=== PATIENT | female | born 2000 | race American Indian/Alaskan Native ===

== ENCOUNTER → 2021-08-20 | Emergency (ER) | payer SELFPAY ==
[~2021-08-20] MED LIST: ACETAMINOPHEN 325 MG TAB PO ONE
[2021-08-20 12:21] VITALS: BP 108/62
--- NOTE | 2021-08-20 12:59 | Emergency Department Report ---
ED HPI - General Chief complaint: Vaginal Bleeding Stated complaint: VAG BLEEDING/PREG Time Seen by Provider: 08/20/21 12:26 Source: patient, family Mode of arrival: Ambulatory Limitations: No Limitations - History of Present Illness Initial comments: Patient is a 21-year-old female presents emergency room complaints of vaginal bleeding that began 3 days ago. She reports that she went to [facility] 3 days ago and states that her hCG quant was 2735 and states that she was advised could be very early and she needed to follow-up with OB for repeat quant. She reports that she did make an appointment with [facility] but has not seen them yet. She states that she has continued to have some bleeding and reports that she passed 1 large clot. States that she is also having lower abdominal cramping. She states that she is changing her pad approximately every 2-3 hours. She denies any fever, nausea, vomiting, diarrhea, dysuria. No allergies to medications. /P: 1/A: 0. She states her last menstrual cycle was 07/21/2021. - Related Data Allergies Allergy/AdvReac Type Severity Reaction Status Date / Time No Known Allergies Allergy Unverified 08/20/21 12:17 ED Review of Systems ROS: Stated complaint: VAG BLEEDING/PREG Other details as noted in HPI Comment: All other systems reviewed and negative ED Past Medical Hx - Past Medical History Previous Medical History?: No - Surgical History Past Surgical History?: No ED Physical Exam - General Limitations: No Limitations General appearance: alert, in no apparent distress - Head Head exam: Present: atraumatic, normocephalic - Eye Eye exam: Present: normal appearance - ENT ENT exam: Present: mucous membranes moist - Respiratory Respiratory exam: Present: normal lung sounds bilaterally. Absent: respiratory distress, wheezes, rales, rhonchi, stridor, chest wall tenderness, accessory muscle use, decreased breath sounds, prolonged expiratory - Cardiovascular Cardiovascular Exam: Present: regular rate, normal rhythm, normal heart sounds. Absent: systolic murmur, diastolic murmur, rubs, gallop - GI/Abdominal GI/Abdominal exam: Present: soft, normal bowel sounds. Absent: distended, tenderness, guarding, rebound, rigid - Neurological Exam Neurological exam: Present: alert, oriented X3 - Psychiatric Psychiatric exam: Present: normal affect, normal mood - Skin Skin exam: Present: warm, dry, intact ED Course Vital Signs 08/20/21 08/20/21 12:17 12:46 Temperature 98 F Pulse Rate 86 Respiratory 16 14 Rate Blood Pressure 108/62 [Left] O2 Sat by Pulse 96 Oximetry ED Medical Decision Making - Lab Data Result diagrams: 08/20/21 13:03 08/20/21 13:03 Lab Results 08/20/21 08/20/21 08/20/21 Range/Units 13:03 13:03 13:03 WBC 4.3 L (4.5-11.0) K/mm3 RBC 4.13 (3.65-5.03) M/mm3 Hgb 12.0 (10.1-14.3) gm/dl Hct 37.8 (30.3-42.9) % MCV 92 (79-97) fl MCH 29 (28-32) pg MCHC 32 (30-34) % RDW 13.6 (13.2-15.2) % Plt Count 222 (140-440) K/mm3 Lymph % (Auto) 27.1 (13.4-35.0) % Emery % (Auto) 11.8 H (0.0-7.3) % Eos % (Auto) 0.4 (0.0-4.3) % Baso % (Auto) 0.8 (0.0-1.8) % Lymph # (Auto) 1.2 (1.2-5.4) K/mm3 Emery # (Auto) 0.5 (0.0-0.8) K/mm3 Eos # (Auto) 0.0 (0.0-0.4) K/mm3 Baso # (Auto) 0.0 (0.0-0.1) K/mm3 Seg Neutrophils % 59.9 (40.0-70.0) % Seg Neutrophils # 2.6 (1.8-7.7) K/mm3 Sodium 138 (137-145) mmol/L Potassium 3.7 (3.6-5.0) mmol/L Chloride 102.3 (98-107) mmol/L Carbon Dioxide 24 (22-30) mmol/L Anion Gap 15 mmol/L BUN 10 (7-17) mg/dL Creatinine 0.6 (0.6-1.2) mg/dL Estimated GFR > 60 ml/min BUN/Creatinine Ratio 17 % Glucose 89 (65-100) mg/dL Calcium 9.0 (8.4-10.2) mg/dL Total Bilirubin 1.20 (0.1-1.2) mg/dL AST 17 (5-40) units/L ALT 13 (7-56) units/L Alkaline Phosphatase 41 (35-129) units/L Total Protein 7.1 (6.3-8.2) g/dL Albumin 4.6 (3.9-5) g/dL Albumin/Globulin Ratio 1.8 % HCG, Quant 1562 H (0-4) mIU/mL Blood Type 08/20/21 Range/Units 13:03 WBC (4.5-11.0) K/mm3 RBC (3.65-5.03) M/mm3 Hgb (10.1-14.3) gm/dl Hct (30.3-42.9) % MCV (79-97) fl MCH (28-32) pg MCHC (30-34) % RDW (13.2-15.2) % Plt Count (140-440) K/mm3 Lymph % (Auto) (13.4-35.0) % Emery % (Auto) (0.0-7.3) % Eos % (Auto) (0.0-4.3) % Baso % (Auto) (0.0-1.8) % Lymph # (Auto) (1.2-5.4) K/mm3 Emery # (Auto) (0.0-0.8) K/mm3 Eos # (Auto) (0.0-0.4) K/mm3 Baso # (Auto) (0.0-0.1) K/mm3 Seg Neutrophils % (40.0-70.0) % Seg Neutrophils # (1.8-7.7) K/mm3 Sodium (137-145) mmol/L Potassium (3.6-5.0) mmol/L Chloride (98-107) mmol/L Carbon Dioxide (22-30) mmol/L Anion Gap mmol/L BUN (7-17) mg/dL Creatinine (0.6-1.2) mg/dL Estimated GFR ml/min BUN/Creatinine Ratio % Glucose (65-100) mg/dL Calcium (8.4-10.2) mg/dL Total Bilirubin (0.1-1.2) mg/dL AST (5-40) units/L ALT (7-56) units/L Alkaline Phosphatase (35-129) units/L Total Protein (6.3-8.2) g/dL Albumin (3.9-5) g/dL Albumin/Globulin Ratio % HCG, Quant (0-4) mIU/mL Blood Type A POSITIVE - Radiology Data Radiology results: report reviewed Ordering Physician: SHAMA ELLINGTON Date of Service: 08/20/21 Procedure(s): US OB transvaginal Accession Number(s): [id number] cc: SHAMA ELLINGTON Pelvic Ultrasound HISTORY: , bleeding, cramping. TECHNIQUE: Grayscale and color imaging performed. COMPARISON: None FINDINGS: Uterus measures 10.0 x 4.1 x 5.5 cm. There is a tiny cystic structure in the uterine body measuring 0.6 centimeters which would correspond with an EGA of 5 weeks and 2 days. There is a yolk sac and a pole measuring 2 mm in maximal dimension corresponding with an EGA of 5 weeks and 6 days. I do not see any imaging with cardiac activity to evaluate for heart rate, perhaps too small/early for determination The ovaries both appear unremarkable with tiny follicles. There is trace pelvic free fluid. IMPRESSION: Single intrauterine gestation as outlined above. Recommend close follow-up to assess for cardiac activity once clinically feasible. Signer Name: Kleber Conde MD Signed: 08/20/2021 4:31 PM Workstation Name: [id number] Transcribed By: Dictated By: Kleber Conde MD Electronically Authenticated By: Kleber Conde MD Signed Date/Time: 08/20/21 1631 DD/ 1619 TD/TT: - Medical Decision Making Patient is a 21-year-old female presents emergency room complaints of vaginal bleeding that began 3 days ago. She reports that she went to [facility] 3 days ago and states that her hCG quant was 2735 and states that she was advised could be very early and she needed to follow-up with OB for repeat quant. She reports that she did make an appointment with [facility] but has not seen them yet. She states that she has continued to have some bleeding and reports that she passed 1 large clot. States that she is also having lower abdominal cramping. She states that she is changing her pad approximately every 2-3 hours. She denies any fever, nausea, vomiting, diarrhea, dysuria. No allergies to medications. /P: 1/A: 0. She states her last menstrual cycle was 07/21/2021. Vitals are normal. No abdominal tenderness on exam. H&H is normal. hCG quant is 1562. Patient is Rh+. OB ultrasound IMPRESSION: Single intrauterine gestation as outlined above. Recommend close follow-up to assess for cardiac activity once clinically feasible. Given that there is no cardiac activity and her hCG quant has decreased this is likely consistent with miscarriage. Discussed all findings with patient. Advised patient May take Tylenol as needed for any pain. Increase your fluid intake. Follow-up with [facility]. You need to have a repeat hCG quant in 2 to 3 days. Return to emergency room for any new or worse symptoms. Today your hCG quant is 1562. Critical care attestation.: If time is entered above; I have spent that time in minutes in the direct care of this critically ill patient, excluding procedure time. ED Disposition Clinical Impression: Threatened miscarriage Disposition: 01 HOME / SELF CARE / HOMELESS Is pt being admited?: No Does the pt Need Aspirin: No Condition: Stable Instructions: Threatened Miscarriage Additional Instructions: May take Tylenol as needed for any pain. Increase your fluid intake. Follow-up with [facility]. You need to have a repeat hCG quant in 2 to 3 days. Return to emergency room for any new or worse symptoms. Today your hCG quant is 1562. Referrals: JIMENA COSBY MD [Staff Physician] - 2-3 Days Forms: Work/School Release Form(ED) Time of Disposition: 16:42 Print Language: NORTHERN IRISH
[2021-08-20 14:16] LABS: Basophils % (Auto) 0.8 % (0.0-1.8); Eosinophils % (Auto) 0.4 % (0.0-4.3); Hematocrit 37.8 % (30.3-42.9); Lymphocytes # (Auto) 1.2 K/mm3 (1.2-5.4); Lymphocytes % (Auto) 27.1 % (13.4-35.0); Mean Corpuscular HGB Conc 32 % (30-34); Mean Corpuscular Volume 92 fl (79-97); Monocytes # (Auto) 0.5 K/mm3 (0.0-0.8); Monocytes % (Auto) 11.8 % (0.0-7.3); Platelet Count 222 K/mm3 (140-440); Red Blood Count 4.13 M/mm3 (3.65-5.03); Red Cell Distribution Width 13.6 % (13.2-15.2)
[2021-08-20 14:36] LABS: Alanine Aminotransferase 13 units/L (7-56); Albumin 4.6 g/dL (3.9-5); Blood Urea Nitrogen 10 mg/dL (7-17); Hemolysis Index 13
[2021-08-20 14:39] LABS: BUN/Creatinine Ratio 17
--- NOTE | 2021-08-20 16:35 | Ultrasound Report ---
Pelvic Ultrasound HISTORY: , bleeding, cramping. TECHNIQUE: Grayscale and color imaging performed. COMPARISON: None FINDINGS: Uterus measures 10.0 x 4.1 x 5.5 cm. There is a tiny cystic structure in the uterine body m easuring 0.6 centimeters which would correspond with an EGA of 5 weeks and 2 days. There is a yolk sa c and a pole measuring 2 mm in maximal dimension corresponding with an EGA of 5 weeks and 6 day s. I do not see any imaging with cardiac activity to evaluate for heart rate, perhaps too small /early for determination The ovaries both appear unremarkable with tiny follicles. There is trace pelvic free fluid. IMPRESSION: Single intrauterine gestation as outlined above. Recommend close follow-up to assess for cardiac activity once clinically feasible. Signer Name: Kleber Conde MD Signed: 08/20/2021 4:31 PM Workstation Name: [id number]
== END | disposition home or self-care (01) ==
LOC: EDBD → ED 12:04
DX: O20.0 Threatened abortion (principal); Z3A.01 Less than 8 weeks gestation of pregnancy
CPT/HCPCS: 36415; 76801; 76817; 80053; 84702; 85025; 86900; 86901; 99284

== ENCOUNTER 2021-10-26 12:00 | Emergency (ER) | payer SELFPAY ==
[2021-10-26 13:15] VITALS: BP 100/55
[2021-10-26] MEDS ORDERED: ACETAMINOPHEN 325 MG TAB PO ONE (14:32)
--- NOTE | 2021-10-26 14:33 | Emergency Department Report ---
ED Female HPI - General Chief complaint: Abdominal Pain Stated complaint: STD/CRAMPING/MIGRAINE Time Seen by Provider: 10/26/21 14:15 Source: patient Mode of arrival: Ambulatory Limitations: No Limitations - History of Present Illness Initial comments: 21-year-old female presents to the ER today with complaints of "I think I had a miscarriage back in August". Patient states that she found out she was back in July. She had a home test which was positive and a confirmed test at a local clinic. She states 2 weeks after final she was she started with vaginal bleeding and she came here and had ultrasound and labs. Patient states that the bleeding then stopped. She states that she is concerned that the "baby has not come out". Patient states that she is concerned because she has been having abdominal pain since September 20. She states that prior to find out she was her last menstrual cycle was July 19. She did start her menstrual cycle yesterday. She is not currently on control. She states that she has never had a miscarriage before and is concerned this could be related to an STD though she denies any abnormal vaginal discharge. She states that she is always at the same sexual partner. She does not have any significant past medical history. She denies any other symptoms at this time. MD Complaint: pelvic pain -: week(s) (since September 20) - Related Data Previous Rx's Medication Instructions Recorded Last Taken Type Ibuprofen [Motrin] 600 mg PO Q8H PRN #30 tablet 10/26/21 Unknown Rx metroNIDAZOLE [Flagyl] 500 mg PO Q12HR #14 tab 10/26/21 Unknown Rx Allergies Allergy/AdvReac Type Severity Reaction Status Date / Time No Known Allergies Allergy Verified 10/26/21 13:10 ED Review of Systems ROS: Stated complaint: STD/CRAMPING/MIGRAINE Other details as noted in HPI Comment: All other systems reviewed and negative Constitutional: denies: chills, fever Eyes: denies: eye pain, eye discharge, vision change ENT: denies: ear pain, throat pain Respiratory: denies: cough, shortness of breath, wheezing Cardiovascular: denies: chest pain, palpitations Gastrointestinal: abdominal pain. denies: nausea, vomiting, diarrhea, constipation, hematemesis, melena Genitourinary: denies: urgency, dysuria, frequency, hematuria, discharge, abnormal menses, dyspareunia Musculoskeletal: denies: back pain, joint swelling, arthralgia Skin: denies: rash, lesions, change in color, change in hair/nails, pruritus Neurological: headache. denies: weakness, numbness, paresthesias, confusion, abnormal gait, vertigo Psychiatric: denies: depression, auditory hallucinations, visual hallucinations, homicidal thoughts, suicidal thoughts Hematological/Lymphatic: denies: easy bleeding, easy bruising, swollen glands ED Past Medical Hx - Past Medical History Previous Medical History?: No - Surgical History Past Surgical History?: No - Medications Home Medications: Home Medications Medication Instructions Recorded Confirmed Last Taken Type Ibuprofen [Motrin] 600 mg PO Q8H PRN #30 tablet 10/26/21 Unknown Rx metroNIDAZOLE [Flagyl] 500 mg PO Q12HR #14 tab 10/26/21 Unknown Rx ED Physical Exam - General Limitations: No Limitations General appearance: alert, in no apparent distress - Head Head exam: Present: atraumatic, normocephalic, normal inspection - Eye Eye exam: Present: normal appearance, PERRL, EOMI Pupils: Present: normal accommodation - Neck Neck exam: Present: normal inspection, full ROM. Absent: meningismus - Respiratory Respiratory exam: Present: normal lung sounds bilaterally. Absent: respiratory distress, wheezes, rales, rhonchi, stridor - Cardiovascular Cardiovascular Exam: Present: normal rhythm, normal heart sounds - GI/Abdominal GI/Abdominal exam: Present: soft, tenderness (mild suprapubic ttp without guarding or rebound ). Absent: distended, guarding, rebound, rigid - External exam: Present: normal external exam, other (Machine Attendant present ) Speculum exam: Present: vaginal bleeding (mild ) Bi-manual exam: Present: normal bi-manual exam - Neurological Exam Neurological exam: Present: alert, oriented X3, CN II-XII intact, normal gait - Psychiatric Psychiatric exam: Present: normal affect, normal mood - Skin Skin exam: Present: intact ED Course Vital Signs 10/26/21 13:14 Temperature 98.3 F Pulse Rate 81 Respiratory 20 Rate Blood Pressure 100/55 O2 Sat by Pulse 99 Oximetry ED Medical Decision Making - Lab Data Result diagrams: 10/26/21 14:42 10/26/21 14:42 - Medical Decision Making CBC and CMP unremarkable. UA normal quant. hCG negative. Wet prep positive for BV but otherwise negative. Patient currently sitting comfortably in the room. She is not toxic or ill-appearing. She has a nonsurgical abdominal exam. Pelvic exam showed some mild bleeding consistent with her menstrual cycle but otherwise no CMT or significant discharge or adnexal tenderness or adnexal mass. She is neurologically intact with a normal gait. Her vital signs are stable. Discussed all lab work with patient. She will be started on Flagyl. I did offer to treat prophylactically for GC but she refused. She will be given referral information to local [facility] for follow-up. Patient expressed understanding. Patient was stable at time of discharge. Critical care attestation.: If time is entered above; I have spent that time in minutes in the direct care of this critically ill patient, excluding procedure time. ED Disposition Clinical Impression: Pelvic pain, Bacterial vaginosis Disposition: HOME / SELF CARE / HOMELESS Is pt being admited?: No Does the pt Need Aspirin: No Condition: Stable Instructions: Pelvic Pain, Female, [id number], Bacterial Vaginosis, Bacterial Vaginosis (ED), Abdominal Pain (ED) Additional Instructions: I recommend that you take the Flagyl as prescribed until completion. You can take Tylenol and ibuprofen as needed for pain. Follow-up with the [facility] listed on discharge instructions especially if your symptoms persist. Return to the ER if your symptoms changes or worsens in any way. Prescriptions: metroNIDAZOLE [Flagyl] 500 mg PO Q12HR #14 tab Ibuprofen [Motrin] 600 mg PO Q8H PRN #30 tablet PRN Reason: Pain Referrals: [facility] [Provider Group] - 3-5 Days [facility] [Provider Group] - 3-5 Days Forms: STI Treatment and Prevention Time of Disposition: 16:31
[2021-10-26 15:18] LABS: Basophils % (Auto) 0.9 % (0.0-1.8); Eosinophils # (Auto) 0.1 K/mm3 (0.0-0.4); Eosinophils % (Auto) 1.9 % (0.0-4.3); Hematocrit 37.1 % (30.3-42.9); Hemoglobin 11.9 gm/dl (10.1-14.3); Lymphocytes # (Auto) 1.8 K/mm3 (1.2-5.4); Lymphocytes % (Auto) 51.9 % (13.4-35.0); Mean Corpuscular HGB Conc 32 % (30-34); Mean Corpuscular Volume 93 fl (79-97); Monocytes # (Auto) 0.3 K/mm3 (0.0-0.8); Monocytes % (Auto) 9.8 % (0.0-7.3); Platelet Count 228 K/mm3 (140-440); Red Blood Count 4.02 M/mm3 (3.65-5.03); Red Cell Distribution Width 14.8 % (13.2-15.2)
[2021-10-26 15:19] LABS: Bilirubin,Urine NEG (Negative); Color,Urine Yellow (Yellow)
[2021-10-26 15:20] LABS: Blood,Urine LG (Negative); Mucus,Urine FEW /HPF; Protein,Urine <15 mg/dL mg/dL (Negative); Urobilinogen,Urine < 2.0 mg/dL (<2.0)
[2021-10-26 16:05] LABS: Alanine Aminotransferase 9 units/L (7-56); Albumin 4.3 g/dL (3.9-5); Blood Urea Nitrogen 12 mg/dL (7-17); Calcium 9.2 mg/dL (8.4-10.2); Hemolysis Index 11
[2021-10-26 16:18] LABS: BUN/Creatinine Ratio 17
== END 2021-10-26 18:00 | disposition home or self-care (01) ==
LOC: ED 12:00
DX: R10.2 Pelvic and perineal pain (principal); N77.1 Vaginitis, vulvitis and vulvovaginitis in diseases classified elsewhere
CPT/HCPCS: 36415; 80053; 81001; 84702; 85025; 87210; 87591; 99284

== ENCOUNTER 2022-03-20 08:14 | Emergency (ER) | payer SELFPAY ==
[2022-03-20 08:48] VITALS: BP 105/68
--- NOTE | 2022-03-20 09:06 | Emergency Department Report ---
ED Female HPI - General Chief complaint: Vaginal Bleeding Stated complaint: 8WKS PREG BLEEDING Time Seen by Provider: 03/20/22 09:02 Source: patient Mode of arrival: Ambulatory Limitations: No Limitations - History of Present Illness Initial comments: LMP 01/21 vag bleeding this AM- light cramps x 2 w not on MVI normal vag dc miscarriage Sep 16 PT CO FOR AB GIVEN HER BLEEDING AMBULATORY NON ILL NON TOXIC ON EXAM MD Complaint: vaginal bleeding -: Gradual Improves with: none Worsens with: none Are you Now?: Yes Associated Symptoms: denies other symptoms, vaginal bleeding. denies: vaginal discharge, abdominal pain, nausea/vomiting, fever/chills, headaches, loss of appetite, hematuria, rash, seizure, shortness of breath, syncope, weakness - Related Data Sexually active: Yes Previous Rx's Medication Instructions Recorded Last Taken Type Ibuprofen [Motrin] 600 mg PO Q8H PRN #30 tablet 10/26/21 Unknown Rx metroNIDAZOLE [Flagyl] 500 mg PO Q12HR #14 tab 10/26/21 Unknown Rx Allergies Allergy/AdvReac Type Severity Reaction Status Date / Time No Known Allergies Allergy Verified 10/26/21 13:10 ED Review of Systems ROS: Stated complaint: 8WKS PREG BLEEDING Other details as noted in HPI Comment: All other systems reviewed and negative ED Past Medical Hx - Past Medical History Previous Medical History?: Yes Hx Asthma: Yes Additional medical history: PCOS - Surgical History Past Surgical History?: No - Family History Family history: no significant - Social History Smoking Status: Never Smoker Substance Use Type: Marijuana - Medications Home Medications: Home Medications Medication Instructions Recorded Confirmed Last Taken Type Ibuprofen [Motrin] 600 mg PO Q8H PRN #30 tablet 10/26/21 Unknown Rx metroNIDAZOLE [Flagyl] 500 mg PO Q12HR #14 tab 10/26/21 Unknown Rx ED Physical Exam - General Limitations: No Limitations General appearance: alert, in no apparent distress - Head Head exam: Present: atraumatic, normocephalic - Eye Eye exam: Present: normal appearance - ENT ENT exam: Present: mucous membranes moist - Neck Neck exam: Present: normal inspection - Respiratory Respiratory exam: Present: normal lung sounds bilaterally. Absent: respiratory distress - Cardiovascular Cardiovascular Exam: Present: regular rate, normal rhythm. Absent: systolic murmur, diastolic murmur, rubs, gallop - GI/Abdominal GI/Abdominal exam: Present: soft, normal bowel sounds - Extremities Exam Extremities exam: Present: normal inspection - Back Exam Back exam: Present: normal inspection - Neurological Exam Neurological exam: Present: alert, oriented X3 - Psychiatric Psychiatric exam: Present: normal affect, normal mood - Skin Skin exam: Present: warm, dry, intact, normal color. Absent: rash ED Course Vital Signs 03/20/22 08:44 Temperature 98.3 F Pulse Rate 64 Respiratory 14 Rate Blood Pressure 105/68 O2 Sat by Pulse 99 Oximetry ED Medical Decision Making - Lab Data Result diagrams: 03/20/22 09:32 03/20/22 09:32 - Radiology Data Radiology results: report reviewed, image reviewed SEE REPORT - Medical Decision Making Lab Results 03/20/22 03/20/22 03/20/22 Range/Units 09:32 09:32 09:32 WBC 3.7 L (4.5-11.0) K/mm3 RBC 4.25 (3.65-5.03) M/mm3 Hgb 12.6 (10.1-14.3) gm/dl Hct 38.9 (30.3-42.9) % MCV 92 (79-97) fl MCH 30 (28-32) pg MCHC 33 (30-34) % RDW 13.7 (13.2-15.2) % Plt Count 262 (140-440) K/mm3 Sodium 140 (137-145) mmol/L Potassium 3.8 (3.6-5.0) mmol/L Chloride 106.6 (98-107) mmol/L Carbon Dioxide 23 (22-30) mmol/L Anion Gap 14 mmol/L BUN 11 (7-17) mg/dL Creatinine 0.7 (0.6-1.2) mg/dL Estimated GFR > 60 ml/min BUN/Creatinine Ratio 16 % Glucose 83 (65-100) mg/dL Calcium 9.2 (8.4-10.2) mg/dL HCG, Quant 1.36 (0-4) mIU/mL Urine Color (Yellow) Urine Turbidity (Clear) Urine pH (5.0-7.0) Ur Specific Rosebud (1.003-1.030) Urine Protein (Negative) mg/dL Urine Glucose (UA) (Negative) mg/dL Urine Ketones (Negative) mg/dL Urine Blood (Negative) Urine Nitrite (Negative) Ur Reducing Substances Urine Bilirubin (Negative) Urine Ictotest Urine Urobilinogen (<2.0) mg/dL Ur Leukocyte Esterase (Negative) Urine WBC (Auto) (0.0-6.0) /HPF Urine RBC (Auto) (0.0-6.0) /HPF U Epithel Cells (Auto) (0-13.0) /HPF Urine Mucus /HPF Blood Type Ord Rhogam Gestat Weeks WEEKS 03/20/22 03/20/22 Range/Units 10:51 Unknown WBC (4.5-11.0) K/mm3 RBC (3.65-5.03) M/mm3 Hgb (10.1-14.3) gm/dl Hct (30.3-42.9) % MCV (79-97) fl MCH (28-32) pg MCHC (30-34) % RDW (13.2-15.2) % Plt Count (140-440) K/mm3 Sodium (137-145) mmol/L Potassium (3.6-5.0) mmol/L Chloride (98-107) mmol/L Carbon Dioxide (22-30) mmol/L Anion Gap mmol/L BUN (7-17) mg/dL Creatinine (0.6-1.2) mg/dL Estimated GFR ml/min BUN/Creatinine Ratio % Glucose (65-100) mg/dL Calcium (8.4-10.2) mg/dL HCG, Quant (0-4) mIU/mL Urine Color Straw (Yellow) Urine Turbidity Cloudy (Clear) Urine pH 6.0 (5.0-7.0) Ur Specific Rosebud 1.025 (1.003-1.030) Urine Protein 100 mg/dl (Negative) mg/dL Urine Glucose (UA) Negative (Negative) mg/dL Urine Ketones 80 (Negative) mg/dL Urine Blood Large A (Negative) Urine Nitrite Negative (Negative) Ur Reducing Substances Not Reportable Urine Bilirubin Negative (Negative) Urine Ictotest Not Reportable Urine Urobilinogen < 2.0 (<2.0) mg/dL Ur Leukocyte Esterase Trace (Negative) Urine WBC (Auto) 8.0 H (0.0-6.0) /HPF Urine RBC (Auto) 147.0 (0.0-6.0) /HPF U Epithel Cells (Auto) 94.0 H (0-13.0) /HPF Urine Mucus 3+ /HPF Blood Type A POSITIVE Ord Rhogam Gestat Weeks Rh pos WEEKS Vital Signs 03/20/22 08:44 Temperature 98.3 F Pulse Rate 64 Respiratory 14 Rate Blood Pressure 105/68 O2 Sat by Pulse 99 Oximetry PT EDUCATED ON FINDINGS LABS/UA/US NOTED RH POS PT WILL FOLLOW UP WITH OBGYN IN 48 HOURS FOR RECHECK DC HOME WITH DC INSTRUCTIONS INCLUDING DIET, MEDS, ACTIVITY AND FOLLOW UP. - Differential Diagnosis RO AB/ECTOPIC/UTI Critical care attestation.: If time is entered above; I have spent that time in minutes in the direct care of this critically ill patient, excluding procedure time. ED Disposition Clinical Impression: Miscarriage Disposition: 01 HOME / SELF CARE / HOMELESS Is pt being admited?: No Does the pt Need Aspirin: No Condition: Stable Additional Instructions: FOLLOW UP WITH OBGYN IN 48 HOURS FOR REEVAL PELVIC REST TYLENOL FOR PAIN Referrals: MANDO BYRNE MD [Staff Physician] - 3-5 Days Forms: Work/School Release Form(ED) Time of Disposition: 11:42
[2022-03-20 10:58] LABS: Hematocrit 38.9 % (30.3-42.9); Hemoglobin 12.6 gm/dl (10.1-14.3); Mean Corpuscular HGB Conc 33 % (30-34); Mean Corpuscular Volume 92 fl (79-97); Platelet Count 262 K/mm3 (140-440); Red Blood Count 4.25 M/mm3 (3.65-5.03); Red Cell Distribution Width 13.7 % (13.2-15.2)
[2022-03-20 11:05] LABS: BUN/Creatinine Ratio 16; Blood Urea Nitrogen 11 mg/dL (7-17); Calcium 9.2 mg/dL (8.4-10.2); Hemolysis Index 11
[2022-03-20 11:42] LABS: Mucus,Urine 3+ /HPF
[2022-03-20 12:01] LABS: Color,Urine Straw (Yellow)
[2022-03-20 12:02] LABS: Bilirubin,Urine Negative (Negative)
[2022-03-20 12:03] LABS: Blood,Urine Large (Negative); Urobilinogen,Urine < 2.0 mg/dL (<2.0)
== END 2022-03-20 12:00 | disposition home or self-care (01) ==
LOC: ED 08:14
DX: O03.9 Complete or unspecified spontaneous abortion without complication (principal); O99.511 Diseases of the respiratory system complicating pregnancy, first trimester; O99.281 Endocrine, nutritional and metabolic diseases complicating pregnancy, first trimester; J45.909 Unspecified asthma, uncomplicated; E28.2 Polycystic ovarian syndrome; Z3A.08 8 weeks gestation of pregnancy
CPT/HCPCS: 36415; 80048; 81001; 84702; 85027; 86900; 86901; 99283

== ENCOUNTER 2022-05-09 17:27 | Emergency (ER) | payer SELFPAY ==
[2022-05-09 22:34] VITALS: BP 114/66
[2022-05-09 23:17] LABS: HCG Qualitative,Urine Positive (Negative)
[2022-05-09 23:21] LABS: Mucus,Urine FEW /HPF
[2022-05-09 23:23] LABS: Basophils % (Auto) 0.5 % (0.0-1.8); Eosinophils % (Auto) 0.6 % (0.0-4.3); Hematocrit 38.3 % (30.3-42.9); Hemoglobin 12.8 gm/dl (10.1-14.3); Lymphocytes # (Auto) 2.7 K/mm3 (1.2-5.4); Mean Corpuscular HGB Conc 33 % (30-34); Mean Corpuscular Volume 93 fl (79-97); Monocytes # (Auto) 0.6 K/mm3 (0.0-0.8); Monocytes % (Auto) 10.8 % (0.0-7.3); Platelet Count 242 K/mm3 (140-440); Red Blood Count 4.12 M/mm3 (3.65-5.03); Red Cell Distribution Width 13.5 % (13.2-15.2)
[2022-05-09 23:26] LABS: Color,Urine Yellow (Yellow)
[2022-05-09 23:36] LABS: Blood Urea Nitrogen 6 mg/dL (7-17); Calcium 9.4 mg/dL (8.4-10.2); Hemolysis Index 8
[2022-05-09 23:37] LABS: BUN/Creatinine Ratio 10
== END 2022-05-10 00:05 | disposition left against medical advice (07) ==
LOC: ED 17:27
DX: R11.2 Nausea with vomiting, unspecified (principal); R19.7 Diarrhea, unspecified; Z53.21 Procedure and treatment not carried out due to patient leaving prior to being seen by health care provider
CPT/HCPCS: 36415; 80048; 81001; 81025; 83690; 84702; 85025